=== PATIENT | female | born 1990 | race Caucasian/White ===

== ENCOUNTER → 2020-01-14 | Outpatient (CLI) | payer OTHER | END | disposition home or self-care (01) | LOC: STAR 14:39 | PROVIDERS: ATTEND Obstetrics & Gynecology | DX: Z01.812 Encounter for preprocedural laboratory examination (principal); Z20.828 Contact with and (suspected) exposure to other viral communicable diseases | CPT/HCPCS: 36415; 87635 ==

== ENCOUNTER 2020-01-18 22:54 | Outpatient (CLI) | payer OTHER ==
[~2020-01-18] VITALS: Ht 163.8 cm; Wt 69.5 kg
[2020-01-18 23:07] VITALS: BP 124/76
[2020-01-18] MEDS ORDERED: TERBUTALINE 1 MG/ML, 1ML ONE (23:31)
== END 2020-01-19 01:03 | disposition home or self-care (01) ==
LOC: LDOP 22:54
PROVIDERS: ATTEND Obstetrics & Gynecology
DX: O62.9 Abnormality of forces of labor, unspecified (principal); Z3A.41 41 weeks gestation of pregnancy
CPT/HCPCS: 59025

== ENCOUNTER 2020-01-19 02:21 | Inpatient (IN) | payer OTHER ==
[~2020-01-19] VITALS: Ht 160 cm; Wt 70.0 kg
[2020-01-19] MEDS ORDERED: SODIUM CITRATE/CITRIC ACID 30 ML UDC PO PRN (02:30)
[2020-01-19] MEDS ORDERED: OXYTOCIN 30U/ 0.9% NaCL 500ML 500 ML IV ONE (02:30)
[2020-01-19] MEDS ORDERED: FENTANYL PF 100 MCG/2ML IVPush PRN (02:30)
[2020-01-19] MEDS ORDERED: TERBUTALINE 1 MG/ML, 1ML IVPush PRN (02:30)
[2020-01-19] MEDS ORDERED: OXYTOCIN 30U/ 0.9% NaCL 500ML 500 ML IV PRN (02:30)
[2020-01-19] MEDS ORDERED: LACTATED RINGERS 1,000 ML IV SCH (02:30)
[2020-01-19] MEDS ORDERED: FENTANYL PF 100 MCG/2ML IV PRN (02:30)
[2020-01-19] MEDS ORDERED: TERBUTALINE 1 MG/ML, 1ML SQ PRN (02:30)
[2020-01-19] MEDS ORDERED: D5%-LACTATED RINGERS 1,000 ML IV SCH (02:30)
[2020-01-19] MEDS ORDERED: ONDANSETRON 2MG/ML, 2ML IVPush PRN (02:30)
[2020-01-19] MEDS ORDERED: CALCIUM CARBONATE 500 MG TAB.CHEW PO PRN ×2 (02:30→07:00)
[2020-01-19] MEDS ORDERED: NEWBORN KIT ONE (02:32)
[2020-01-19] MEDS ORDERED: OXYTOCIN 30U/ 0.9% NaCL 500ML 500 ML ONE ×2 (02:32→07:54)
[2020-01-19] MEDS ORDERED: FENTANYL PF 100 MCG/2ML ONE ×2 (02:34→04:40)
[2020-01-19] MEDS ORDERED: FENTANYL/BUPIV./NS/PF 0 ML EPIDCONT ONE (02:40)
[2020-01-19 02:47] VITALS: BP 134/60
[2020-01-19 03:15] LABS: BASOPHILS % (AUTO) 0 % (0-1); EOSINOPHILS % (AUTO) 0 % (1-7); LYMPHOCYTES % (AUTO) 8 % (22-44); MEAN CORPUSCULAR HEMOGLOBIN 23.4 pg (27.0-34.8); MEAN CORPUSCULAR HGB CONC 31.6 g/dL (32.4-35.8); MEAN PLATELET VOLUME 10.5 fL (7.4-10.4); MONOCYTES % (AUTO) 7 % (2-9); NEUTROPHILS % (AUTO) 85 % (42-75); PLATELET COUNT 115 x10^3/uL (130-400)
[2020-01-19 03:59] LABS: MD SCAN
[2020-01-19] MEDS ORDERED: METOCLOPRAMIDE 5 MG/ML, 2ML ONE (04:36)
[2020-01-19] MEDS ORDERED: MIDAZOLAM 1 MG/ML, 2ML ONE (04:40)
[2020-01-19] MEDS ORDERED: CEFAZOLIN 1,000 MG ONE (04:57)
[2020-01-19] MEDS ORDERED: WATER-INJECTION,STERILE 10 ML IV ONE (04:57)
[2020-01-19] MEDS ORDERED: METOCLOPRAMIDE 5 MG/ML, 2ML IV ONE (05:00)
[2020-01-19] MEDS ORDERED: RHOGAM FROM BLOOD BANK 1 NOTE EA IM/IV ONE (07:00)
[2020-01-19] MEDS ORDERED: SIMETHICONE 80 MG CHEW TAB PO PRN (07:00)
[2020-01-19] MEDS ORDERED: DOCUSATE 100 MG CAPSULE PO PRN (07:00)
[2020-01-19] MEDS ORDERED: METOCLOPRAMIDE 5 MG/ML, 2ML IV PRN (07:00)
[2020-01-19] MEDS ORDERED: ACETAMINOPHEN 325 MG TABLET PO PRN ×3 (07:00)
[2020-01-19] MEDS ORDERED: IBUPROFEN 800 MG TABLET PO PRN (07:00)
[2020-01-19] MEDS ORDERED: BISACODYL 10 MG SUPP PR PRN (07:00)
[2020-01-19] MEDS ORDERED: MISOPROSTOL 200 MCG TABLET SL PRN ×3 (07:00)
[2020-01-19] MEDS ORDERED: OXYcodone IR 5MG TABLET PO PRN ×2 (07:00)
[2020-01-19] MEDS ORDERED: OXYcodone/APAP 5/325MG TABLET PO PRN (07:00)
[2020-01-19] MEDS ORDERED: ONDANSETRON 2MG/ML, 2ML IV PRN (07:00)
[2020-01-19] MEDS ORDERED: METHYLERGONOVINE 0.2 MG/ML IM PRN (07:00)
[2020-01-19] MEDS ORDERED: MISOPROSTOL 200 MCG TABLET PR PRN ×3 (07:00)
[2020-01-19] MEDS ORDERED: CARBOPROST TROMETHAMINE 250 MCG/ML, 1ML IM PRN (07:00)
[2020-01-19] MEDS ORDERED: MEASLES,MUMPS&RUBELLA VACC/PF 0.5 ML SQ-VACC PRN (07:00)
[2020-01-19] MEDS ORDERED: HYDROcodone/APAP 5/325 TABLET PO PRN (07:00)
[2020-01-19] MEDS ORDERED: MAGNESIUM HYDROXIDE 8%, 30ML UDC PO PRN (07:00)
[2020-01-19] MEDS ORDERED: MISOPROSTOL 200 MCG TABLET PO PRN ×3 (07:00)
[2020-01-19] MEDS: OXYTOCIN 30U/ 0.9% NaCL 500ML 500 ML IV SCH ×2 (08:01→17:00)
[2020-01-19 08:45] VITALS: BP 94/60
[2020-01-19] MEDS: PRENATAL VIT/IRON/FA 1 EACH TABLET PO SCH (09:00)
[2020-01-19] MEDS: IBUPROFEN 600 MG TABLET PO PRN ×2 (11:27→17:15)
[2020-01-19] MEDS: OXYcodone/APAP 5/325MG TABLET PO PRN ×3 (11:27→21:40)
[2020-01-19 12:05] VITALS: BP 107/68
[2020-01-19 12:12] LABS: BASOPHILS % (AUTO) 0 % (0-1); EOSINOPHILS % (AUTO) 0 % (1-7); LYMPHOCYTES % (AUTO) 8 % (22-44); MEAN CORPUSCULAR HEMOGLOBIN 23.7 pg (27.0-34.8); MEAN CORPUSCULAR HGB CONC 31.9 g/dL (32.4-35.8); MEAN PLATELET VOLUME 10.6 fL (7.4-10.4); MONOCYTES % (AUTO) 8 % (2-9); NEUTROPHILS % (AUTO) 84 % (42-75); PLATELET COUNT 115 x10^3/uL (130-400); RED BLOOD COUNT 3.86 x10^6/uL (3.82-5.3)
[2020-01-19 12:22] LABS: MD NO
[2020-01-19 16:30] VITALS: BP 115/74
[2020-01-19 20:00] VITALS: BP 99/67
[2020-01-19] MEDS: DOCUSATE 100 MG CAPSULE PO SCH (21:40)
[2020-01-19 23:49] VITALS: BP 115/77
[2020-01-20] MEDS: OXYcodone/APAP 5/325MG TABLET PO PRN ×2 (01:34→07:26)
[2020-01-20] MEDS: OXYTOCIN 30U/ 0.9% NaCL 500ML 500 ML IV SCH ×3 (03:00→23:00)
[2020-01-20 04:40] VITALS: BP 104/67
[2020-01-20] MEDS: DOCUSATE 100 MG CAPSULE PO SCH ×2 (07:26→20:08)
[2020-01-20] MEDS: IBUPROFEN 600 MG TABLET PO PRN ×3 (07:26→20:08)
[2020-01-20 07:45] VITALS: BP 112/76
[2020-01-20] MEDS ORDERED: POLYETHYLENE GLYCOL 17 GM PACKET NG PRN (08:30)
[2020-01-20] MEDS: PRENATAL VIT/IRON/FA 1 EACH TABLET PO SCH (09:00)
[2020-01-20 20:21] VITALS: BP 101/67
[2020-01-21] MEDS: IBUPROFEN 600 MG TABLET PO PRN ×3 (02:06→14:16)
[2020-01-21] MEDS ORDERED: IBUP-1222 PO (03:28)
[2020-01-21] MEDS ORDERED: DOCU-131 PO (03:29)
[2020-01-21 07:45] VITALS: BP 112/77
[2020-01-21] MEDS: DOCUSATE 100 MG CAPSULE PO SCH (07:59)
[2020-01-21] MEDS ORDERED: SENN-92 PO (09:15)
== END 2020-01-21 14:36 | disposition home or self-care (01) | DRG 768 ==
LOC: LDOP 02:21 → LDIP 02:35 → 2NW 08:28
PROVIDERS: ADMIT Family Medicine; ATTEND Obstetrics & Gynecology
PROC: 10D07Z6 Extraction of Products of Conception, Vacuum, Via Natural or Artificial Opening (ICD-10-PCS; principal; 2020-01-19)
PROC: 0DQP0ZZ Repair Rectum, Open Approach (ICD-10-PCS; 2020-01-19)
DX: O76 Abnormality in fetal heart rate and rhythm complicating labor and delivery (principal); Z37.0 Single live birth; O70.3 Fourth degree perineal laceration during delivery; Z20.828 Contact with and (suspected) exposure to other viral communicable diseases; Z3A.41 41 weeks gestation of pregnancy; Z23 Encounter for immunization; Z88.0 Allergy status to penicillin
CPT/HCPCS: 36415; 85025; 86592; 86762; 86850; 86900; G0378; J0690; J2250; J3010; J2590